=== PATIENT | female | born 1950 | race Caucasian/White ===

== ENCOUNTER 2019-12-12 15:55 | Observation (INO) | payer MEDICARE, BC, OTHER ==
[2019-12-12] MEDS ORDERED: Sodium Chloride 0.9% 2.5 ML Syringe FLUSH PRN (15:57)
[2019-12-12] MEDS ORDERED: Sodium Chloride 0.9% 10 ML Syringe FLUSH PRN (15:57)
--- NOTE | 2019-12-12 16:29 | EDM.PDOC ---
ED HPI GENERAL MEDICAL PROBLEM - General Chief Complaint: Chest Pain Stated Complaint: CHEST PAIN Time Seen by Provider: 12/12/19 15:56 Source of Information: Reports: Patient History Limitations: Reports: No Limitations - History of Present Illness INITIAL COMMENTS - FREE TEXT/NARRATIVE: 68-year-old female with history of HTN, CHF presents with acute onset substernal chest pain 45 minutes prior to arrival. She was getting out of a car when she felt acute onset sharp, squeezing pain localized to the sub-sternum that radiates to her back. Rated 7/10 at the time of onset, currently asymptomatic at 0/10. She denies nausea, vomiting, shortness of breath, abdominal pain, fever, cough. ROS: A 10-point review of systems, other than pertinent positives and negatives as stated per HPI, is otherwise negative PHYSICAL EXAM General: AOx4, GCS = 15, No distress HEENT: dry mucous membrane Neck: supple, no meningismus, no Kernig or Brudzinski Cardiac: S1S2 RRR Respiratory: CTAB, no crackles or rales, no wheezing Abdomen: Soft, nontender, no rebound or guarding, nondistended, no pulsatile mas s. Back: nontender Musculoskeletal: NVI distally, no deformity Neuro: No focal deficits, CN 2 - 12 WNL. - Related Data Allergies Allergy/AdvReac Type Severity Reaction Status Date / Time No Known Allergies Allergy Verified 12/12/19 16:07 ED ROS GENERAL - Review of Systems Review Of Systems: See Below (see dictation) ED EXAM, GENERAL - Physical Exam Exam: See Below (see dictation) EKG INTERPRETATION EKG Interpretation Comments: 96 Bpm, NSR, normal QRS interval, no STEMI. EKG and rhythm strip interpreted by me at 1559 Course - Vital Signs Last Recorded V/S: Last Vital Signs Temp 96.8 F L 12/12/19 16:05 Pulse 91 12/12/19 18:19 Resp 16 12/12/19 18:19 BP 171/80 H 12/12/19 18:19 Pulse Ox 98 12/12/19 18:19 - Orders/Labs/Meds Orders: Active Orders 24 hr Category Date Time Status Admission Status [Patient Status] [ADT] Stat ADT 12/12/19 19:06 Ordered Cardiac Monitoring [RC] . DIRECTED Care 12/12/19 15:57 Active EKG Documentation Completion [RC] STAT Care 12/12/19 15:57 Active Pulse Oximetry [RC] ASDIRECTED Care 12/12/19 15:57 Active CORONAVIRUS COVID-19 PCR PHL Stat Lab 12/12/19 19:02 Ordered Sodium Chloride 0.9% [Saline Flush] Med 12/12/19 15:57 Active 10 ml FLUSH ASDIRECTED PRN Sodium Chloride 0.9% [Saline Flush] Med 12/12/19 15:57 Active 2.5 ml FLUSH ASDIRECTED PRN Saline Lock Insert [OM.PC] Stat Oth 12/12/19 15:57 Ordered Medication Orders Sodium Chloride (Saline Flush) 10 ml FLUSH ASDIRECTED PRN PRN Reason: Keep Vein Open Last Admin: 12/12/19 18:18 Dose: 10 ml Documented by: [email or web address] Sodium Chloride (Saline Flush) 2.5 ml FLUSH ASDIRECTED PRN PRN Reason: Keep Vein Open Last Admin: 12/12/19 18:18 Dose: 2.5 ml Documented by: [email or web address] Labs: Laboratory Tests 12/12/19 12/12/19 12/12/19 Range/Units 16:45 16:45 16:45 WBC 6.96 (4.0-11.0) K/uL RBC 4.39 (4.30-5.90) M/uL Hgb 14.4 (12.0-16.0) g/dL Hct 41.7 (36.0-46.0) % MCV 95.0 (80.0-98.0) fL MCH 32.8 H (27.0-32.0) pg MCHC 34.5 (31.0-37.0) g/dL RDW Std Deviation 43.6 (28.0-62.0) fl RDW Coeff of Vidya 13 (11.0-15.0) % Plt Count 252 (150-400) K/uL MPV 9.60 (7.40-12.00) fL Neut % (Auto) 46.8 L (48.0-80.0) % Lymph % (Auto) 44.0 H (16.0-40.0) % [place] % (Auto) 6.5 (0.0-15.0) % Eos % (Auto) 2.4 (0.0-7.0) % Baso % (Auto) 0.3 (0.0-1.5) % Neut # (Auto) 3.3 (1.4-5.7) K/uL Lymph # (Auto) 3.1 H (0.6-2.4) K/uL [place] # (Auto) 0.5 (0.0-0.8) K/uL Eos # (Auto) 0.2 (0.0-0.7) K/uL Baso # (Auto) 0.0 (0.0-0.1) K/uL Nucleated RBC % 0.0 /100WBC Nucleated RBCs # 0 K/uL INR 0.99 Sodium 139 (136-145) mmol/L Potassium 2.5 L (3.5-5.1) mmol/L Chloride 100 (98-107) mmol/L Carbon Dioxide 31.5 (21.0-32.0) mmol/L BUN 19 H (7.0-18.0) mg/dL Creatinine 0.8 (0.6-1.0) mg/dL Est Cr Clr Drug Dosing 48.34 mL/min Estimated GFR (MDRD) > 60.0 ml/min Glucose 186 H (74-106) mg/dL Calcium 9.1 (8.5-10.1) mg/dL Total Bilirubin 0.3 (0.2-1.0) mg/dL AST 20 (15-37) IU/L ALT 22 (14-63) IU/L Alkaline Phosphatase 71 (46-116) U/L Troponin I < 0.050 (0.000-0.056) ng/mL Total Protein 6.8 (6.4-8.2) g/dL Albumin 3.6 (3.4-5.0) g/dL Globulin 3.2 (2.6-4.0) g/dL Albumin/Globulin Ratio 1.1 (0.9-1.6) 12/12/19 Range/Units 18:00 WBC (4.0-11.0) K/uL RBC (4.30-5.90) M/uL Hgb (12.0-16.0) g/dL Hct (36.0-46.0) % MCV (80.0-98.0) fL MCH (27.0-32.0) pg MCHC (31.0-37.0) g/dL RDW Std Deviation (28.0-62.0) fl RDW Coeff of Vidya (11.0-15.0) % Plt Count (150-400) K/uL MPV (7.40-12.00) fL Neut % (Auto) (48.0-80.0) % Lymph % (Auto) (16.0-40.0) % [place] % (Auto) (0.0-15.0) % Eos % (Auto) (0.0-7.0) % Baso % (Auto) (0.0-1.5) % Neut # (Auto) (1.4-5.7) K/uL Lymph # (Auto) (0.6-2.4) K/uL [place] # (Auto) (0.0-0.8) K/uL Eos # (Auto) (0.0-0.7) K/uL Baso # (Auto) (0.0-0.1) K/uL Nucleated RBC % /100WBC Nucleated RBCs # K/uL INR Sodium (136-145) mmol/L Potassium (3.5-5.1) mmol/L Chloride (98-107) mmol/L Carbon Dioxide (21.0-32.0) mmol/L BUN (7.0-18.0) mg/dL Creatinine (0.6-1.0) mg/dL Est Cr Clr Drug Dosing mL/min Estimated GFR (MDRD) ml/min Glucose (74-106) mg/dL Calcium (8.5-10.1) mg/dL Total Bilirubin (0.2-1.0) mg/dL AST (15-37) IU/L ALT (14-63) IU/L Alkaline Phosphatase (46-116) U/L Troponin I < 0.050 (0.000-0.056) ng/mL Total Protein (6.4-8.2) g/dL Albumin (3.4-5.0) g/dL Globulin (2.6-4.0) g/dL Albumin/Globulin Ratio (0.9-1.6) Meds: Medications Generic Name Dose Route Start Last Admin Trade Name Freq PRN Reason Stop Dose Admin Sodium Chloride 10 ml 12/12/19 15:57 12/12/19 18:18 Saline Flush FLUSH 10 ml ASDIRECTED PRN Administration Keep Vein Open Sodium Chloride 2.5 ml 12/12/19 15:57 12/12/19 18:18 Saline Flush FLUSH 2.5 ml ASDIRECTED PRN Administration Keep Vein Open Discontinued Medications Generic Name Dose Route Start Last Admin Trade Name Freq PRN Reason Stop Dose Admin Iopamidol 50 ml 12/12/19 18:10 12/12/19 18:10 Isovue Multipack-370 (76%) IVPUSH 12/12/19 18:11 50 ml ONETIME STA Administration Potassium Chloride 40 meq 12/12/19 17:34 12/12/19 18:18 Klor-Con M20 PO 12/12/19 17:35 40 meq ONETIME ONE Administration - Re-Assessments/Exams Free Text/Narrative Re-Assessment/Exam: 12/12/19 18:[address] Zuniga, who agrees to assume care at this point. The hospitalist's documentation supersedes all other documentation on this patient with regard to any conflicts or discrepancies from this point forward. Any emergency conditions have been treated to the ability of the ED prior to admission. Departure - Departure Time of Disposition: 18:48 Disposition: Refer to Observation Condition: Good Clinical Impression: Atypical chest pain Referrals: Angeles Palacios MD [Primary Care Provider] - Forms: ED Department Discharge Sepsis Event Note (ED) - Evaluation Sepsis Screening Result: No Definite Risk - Focused Exam Vital Signs: Vital Signs Temp Pulse Resp BP Pulse Ox 12/12/19 18:19 91 16 171/80 H 98 12/12/19 16:05 96.8 F L 98 16 156/86 H 99 - My Orders Last 24 Hours: My Active Orders 12/12/19 15:57 Cardiac Monitoring [RC] . DIRECTED EKG Documentation Completion [RC] STAT Pulse Oximetry [RC] ASDIRECTED Sodium Chloride 0.9% [Saline Flush] 10 ml FLUSH ASDIRECTED PRN Sodium Chloride 0.9% [Saline Flush] 2.5 ml FLUSH ASDIRECTED PRN Saline Lock Insert [OM.PC] Stat 12/12/19 19:02 CORONAVIRUS COVID-19 PCR PHL Stat 12/12/19 19:06 Admission Status [Patient Status] [ADT] Stat - Assessment/Plan Last 24 Hours: My Active Orders 12/12/19 15:57 Cardiac Monitoring [RC] . DIRECTED EKG Documentation Completion [RC] STAT Pulse Oximetry [RC] ASDIRECTED Sodium Chloride 0.9% [Saline Flush] 10 ml FLUSH ASDIRECTED PRN Sodium Chloride 0.9% [Saline Flush] 2.5 ml FLUSH ASDIRECTED PRN Saline Lock Insert [OM.PC] Stat 12/12/19 19:02 CORONAVIRUS COVID-19 PCR PHL Stat 12/12/19 19:06 Admission Status [Patient Status] [ADT] Stat
--- NOTE | 2019-12-12 16:35 | CR ---
Chest: Portable view of the chest was obtained. Comparison: No prior chest imaging is available. Left clavicle fracture is seen which appears to be old. Heart size and mediastinum are normal. Lungs are clear. Impression: 1. Nothing acute is appreciated on portable chest x-ray. Diagnostic code #2 This report was dictated in MDT
[2019-12-12 17:24] LABS: BLOOD UREA NITROGEN,BUN 19 mg/dL (7.0-18.0); CARBON DIOXIDE,CO2 31.5 mmol/L (21.0-32.0); CHLORIDE,CL 100 mmol/L (98-107); GLUCOSE RANDOM 186 mg/dL (74-106); POTASSIUM,K 2.5 mmol/L (3.5-5.1); SODIUM,NA 139 mmol/L (136-145)
[2019-12-12] MEDS ORDERED: Potassium Chloride 20 MEQ Tab.ER PO ONE (17:34)
[2019-12-12] MEDS ORDERED: Iopamidol 755 MG/ML 500 ML Multipack Bottle IVPUSH STA (18:10)
--- NOTE | 2019-12-12 18:15 | CT ---
CT chest Technique: Multiple axial sections were obtained from above the lung apices inferiorly through the lung bases. Intravenous contrast was utilized. Study performed as a pulmonary angiogram protocol. Comparison: Prior chest x-ray performed earlier on the same day. Findings: Aorta shows atherosclerotic calcification without aneurysm or dissection. Pulmonary arteries are well opacified. No filling defects are seen to indicate pulmonary embolism. Mediastinum and hilar region show no adenopathy. No pericardial thickening is seen. Visualized upper abdominal structures show nothing acute. Lung window settings were reviewed which show no acute parenchymal. Bone window settings were reviewed which shows no acute osseous finding. Impression: 1. No findings of pulmonary embolism. 2. Nothing acute is seen on CT study of the chest. Diagnostic code #2 This report was dictated in MDT
[2019-12-12] MEDS ORDERED: Albuterol/Ipratropium 3.0-0.5 MG/3 ML Neb Soln NEB PRN (20:29)
[2019-12-12] MEDS ORDERED: Acetaminophen 500 MG Tab PO PRN (21:21)
--- NOTE | 2019-12-12 22:36 | PCM.HP.2 ---
H&P History of Present Illness - General Date of Service: 12/12/19 Admit Problem/Dx: Admission Diagnosis/Problem Admission Diagnosis/Problem Chest pain - History of Present Illness Initial Comments - Free Text/Narative: 68-year-old female with history of HTN, anxiety, depression, presents with acute onset substernal chest pain 45 minutes prior to arrival. She was getting out of a car when she felt acute onset sharp, squeezing pain localized to the sub-sternum that radiates to her back. Rated 7/10 at the time of onset, by the time she was seen in ER she was asymptomatic. She denies nausea, vomiting, shor tness of breath, abdominal pain, fever, cough. Patient has no h/o chest pain or CAD. Generally healthy. in ER 1st set of troponin was negative, EKG showed no acute ischemic changes., labs were reassuring, except for hypokalemia, which was repleted, Patient was admitted for ACS rule out. - Related Data Allergies/Adverse Reactions: Allergies Allergy/AdvReac Type Severity Reaction Status Date / Time No Known Allergies Allergy Verified 12/12/19 21:35 Home Medications: Home Meds Chlorthalidone 25 mg PO DAILY 12/12/19 [History] DULoxetine [Cymbalta] 90 mg PO DAILY 12/12/19 [History] Furosemide [Lasix] 20 mg PO DAILY 12/12/19 [History] Telmisartan [Micardis] 60 mg PO DAILY 12/12/19 [History] Aspirin [Halfprin] 81 mg PO DAILY #30 tab.ec 12/13/19 [Rx] Potassium Citrate [Potassium Citrate ER] 10 meq PO DAILY #7 tablet.er 12/13/19 [Rx] atorvaSTATin [Lipitor] 10 mg PO BEDTIME #30 tab 12/13/19 [Rx] Past Medical History Cardiovascular History: Reports: Hypertension Psychiatric History: Reports: Anxiety, Depression - Infectious Disease History Infectious Disease History: Reports: Chicken Pox Social & Family History - Family History Family Medical History: Noncontributory - Tobacco Use Smoking Status *Q: Unknown Ever Smoked H&P Review of Systems - Review of Systems: Review Of Systems: See Below General: Denies: Fever, Chills, Malaise HEENT: Denies: Dysphasia, Ear Pain Pulmonary: Denies: Shortness of Breath, Wheezing, Pleuritic Chest Pain Cardiovascular: Reports: Chest Pain (resolved). Denies: Palpitations, Dyspnea on Exertion, Orthopnea Gastrointestinal: Denies: Abdominal Pain, Anorexia, Black Stool Genitourinary: Denies: Dysuria, Frequency, Burning Musculoskeletal: Denies: Neck Pain, Shoulder Pain, Arm Pain Skin: Denies: Cyanosis, Jaundice, Mottled Psychiatric: Denies: Confusion, Depression, Mood Lability Neurological: Denies: Dizziness, Headache, Numbness Hematologic/Lymphatic: Denies: Easy Bleeding, Easy Bruising Immunologic: Denies: Anaphylaxis, Environmental Allergy, Seasonal Allergy Exam - Exam Exam: See Below - Vital Signs Vital Signs: Last Vital Signs Temp 36.3 C 12/12/19 21:30 Pulse 83 12/12/19 21:30 Resp 16 12/12/19 21:30 BP 135/74 12/12/19 21:30 Pulse Ox 99 12/12/19 21:30 Weight: 61.235 kg - Exam General: Alert, Oriented Neck: Supple Lungs: Clear to Auscultation, Normal Respiratory Effort Cardiovascular: Regular Rate, Regular Rhythm, Normal S1, Normal S2 Back Exam: Normal Inspection, Full Range of Motion Extremities: Normal Inspection, Normal Range of Motion, Non-Tender, No Pedal Edema - Patient Data Lab Results Last 24 hrs: Laboratory Results - last 24 hr 12/12/19 12/12/19 12/12/19 Range/Units 16:45 16:45 16:45 WBC 6.96 (4.0-11.0) K/uL RBC 4.39 (4.30-5.90) M/uL Hgb 14.4 (12.0-16.0) g/dL Hct 41.7 (36.0-46.0) % MCV 95.0 (80.0-98.0) fL MCH 32.8 H (27.0-32.0) pg MCHC 34.5 (31.0-37.0) g/dL RDW Std Deviation 43.6 (28.0-62.0) fl RDW Coeff of Vidya 13 (11.0-15.0) % Plt Count 252 (150-400) K/uL MPV 9.60 (7.40-12.00) fL Neut % (Auto) 46.8 L (48.0-80.0) % Lymph % (Auto) 44.0 H (16.0-40.0) % [place] % (Auto) 6.5 (0.0-15.0) % Eos % (Auto) 2.4 (0.0-7.0) % Baso % (Auto) 0.3 (0.0-1.5) % Neut # (Auto) 3.3 (1.4-5.7) K/uL Lymph # (Auto) 3.1 H (0.6-2.4) K/uL [place] # (Auto) 0.5 (0.0-0.8) K/uL Eos # (Auto) 0.2 (0.0-0.7) K/uL Baso # (Auto) 0.0 (0.0-0.1) K/uL Nucleated RBC % 0.0 /100WBC Nucleated RBCs # 0 K/uL INR 0.99 Sodium 139 (136-145) mmol/L Potassium 2.5 L (3.5-5.1) mmol/L Chloride 100 (98-107) mmol/L Carbon Dioxide 31.5 (21.0-32.0) mmol/L BUN 19 H (7.0-18.0) mg/dL Creatinine 0.8 (0.6-1.0) mg/dL Est Cr Clr Drug Dosing 48.34 mL/min Estimated GFR (MDRD) > 60.0 ml/min Glucose 186 H (74-106) mg/dL Calcium 9.1 (8.5-10.1) mg/dL Total Bilirubin 0.3 (0.2-1.0) mg/dL AST 20 (15-37) IU/L ALT 22 (14-63) IU/L Alkaline Phosphatase 71 (46-116) U/L Troponin I < 0.050 (0.000-0.056) ng/mL Total Protein 6.8 (6.4-8.2) g/dL Albumin 3.6 (3.4-5.0) g/dL Globulin 3.2 (2.6-4.0) g/dL Albumin/Globulin Ratio 1.1 (0.9-1.6) SARS-CoV-2 RNA (RT-PCR) (NEGATIVE) 12/12/19 12/12/19 12/12/19 Range/Units 18:00 19:00 21:10 WBC (4.0-11.0) K/uL RBC (4.30-5.90) M/uL Hgb (12.0-16.0) g/dL Hct (36.0-46.0) % MCV (80.0-98.0) fL MCH (27.0-32.0) pg MCHC (31.0-37.0) g/dL RDW Std Deviation (28.0-62.0) fl RDW Coeff of Vidya (11.0-15.0) % Plt Count (150-400) K/uL MPV (7.40-12.00) fL Neut % (Auto) (48.0-80.0) % Lymph % (Auto) (16.0-40.0) % [place] % (Auto) (0.0-15.0) % Eos % (Auto) (0.0-7.0) % Baso % (Auto) (0.0-1.5) % Neut # (Auto) (1.4-5.7) K/uL Lymph # (Auto) (0.6-2.4) K/uL [place] # (Auto) (0.0-0.8) K/uL Eos # (Auto) (0.0-0.7) K/uL Baso # (Auto) (0.0-0.1) K/uL Nucleated RBC % /100WBC Nucleated RBCs # K/uL INR Sodium (136-145) mmol/L Potassium (3.5-5.1) mmol/L Chloride (98-107) mmol/L Carbon Dioxide (21.0-32.0) mmol/L BUN (7.0-18.0) mg/dL Creatinine (0.6-1.0) mg/dL Est Cr Clr Drug Dosing mL/min Estimated GFR (MDRD) ml/min Glucose (74-106) mg/dL Calcium (8.5-10.1) mg/dL Total Bilirubin (0.2-1.0) mg/dL AST (15-37) IU/L ALT (14-63) IU/L Alkaline Phosphatase (46-116) U/L Troponin I < 0.050 <0.050 (0.000-0.056) ng/mL Total Protein (6.4-8.2) g/dL Albumin (3.4-5.0) g/dL Globulin (2.6-4.0) g/dL Albumin/Globulin Ratio (0.9-1.6) SARS-CoV-2 RNA (RT-PCR) NEGATIVE (NEGATIVE) Result Diagrams: 12/13/19 05:42 12/13/19 05:42 Sepsis Event Note - Evaluation Sepsis Screening Result: No Definite Risk - Focused Exam Vital Signs: Vital Signs Temp Pulse Resp BP Pulse Ox 12/12/19 21:30 36.3 C 83 16 135/74 99 12/12/19 19:30 36.9 C 86 18 125/83 97 12/12/19 18:19 91 16 171/80 H 98 12/12/19 16:05 36.0 C L 98 16 156/86 H 99 Date Exam was Performed: 12/13/19 Time Exam was Performed: 15:39 - Problem List (1) HTN (hypertension) SNOMED Code(s): 00940046 ICD Code: I10 - ESSENTIAL (PRIMARY) HYPERTENSION Status: Acute (2) Atypical chest pain SNOMED Code(s): 149611097 ICD Code: R07.89 - OTHER CHEST PAIN Status: Acute (3) Hypokalemia SNOMED Code(s): 53550450 ICD Code: E87.6 - HYPOKALEMIA Status: Acute Problem List Initiated/Reviewed/Updated: Yes Orders Last 24hrs: Active Orders 24 hr Category Date Time Status Admission Status [Patient Status] [ADT] Stat ADT 12/12/19 19:06 Active Ambulate [RC] ASDIRECTED Care 12/12/19 20:28 Active Antiembolic Devices [RC] PER UNIT ROUTINE Care 12/12/19 20:30 Active EKG Documentation Completion [RC] STAT Care 12/12/19 15:57 Active Oxygen Therapy Adult [Oxygen Therapy] [RC] ASDIRECTED Care 12/12/19 20:29 Active Pulse Oximetry [RC] ASDIRECTED Care 12/12/19 15:57 Active Pulse Oximetry [RC] PRN Care 12/12/19 20:29 Active RT Aerosol Therapy [RC] ASDIRECTED Care 12/12/19 20:30 Active Telemetry Monitoring [Cardiac Monitoring] [RC] Q8H Care 12/12/19 19:24 Active Vital Signs [RC] Q4H Care 12/12/19 20:00 Active Heart Healthy Diet [DIET] Diet 12/13/19 Breakfast Active BASIC METABOLIC PANEL,BMP [CHEM] AM Lab 12/13/19 05:11 Ordered CBC WITH AUTO DIFF [HEME] AM Lab 12/13/19 05:11 Ordered MAGNESIUM [CHEM] AM Lab 12/13/19 05:11 Ordered PHOSPHORUS [CHEM] AM Lab 12/13/19 05:11 Ordered Acetaminophen [Tylenol Extra Strength] Med 12/12/19 21:21 Active 500 mg PO Q6H PRN Albuterol/Ipratropium [DuoNeb 3.0-0.5 MG/3 ML] Med 12/12/19 20:29 Active 3 ml NEB Q4HRRT PRN Sodium Chloride 0.9% [Saline Flush] Med 12/12/19 15:57 Active 10 ml FLUSH ASDIRECTED PRN Sodium Chloride 0.9% [Saline Flush] Med 12/12/19 15:57 Active 2.5 ml FLUSH ASDIRECTED PRN Saline Lock Insert [OM.PC] Stat Oth 12/12/19 15:57 Ordered Sequential Compression Device [OM.PC] Routine Oth 12/12/19 20:30 Ordered Medication Orders Acetaminophen (Tylenol Extra Strength) 500 mg PO Q6H PRN PRN Reason: Pain Albuterol/Ipratropium (Duoneb 3.0-0.5 Mg/3 Ml) 3 ml NEB Q4HRRT PRN PRN Reason: Shortness of Breath Sodium Chloride (Saline Flush) 10 ml FLUSH ASDIRECTED PRN PRN Reason: Keep Vein Open Last Admin: 12/12/19 18:18 Dose: 10 ml Documented by: [email or web address] Sodium Chloride (Saline Flush) 2.5 ml FLUSH ASDIRECTED PRN PRN Reason: Keep Vein Open Last Admin: 12/12/19 18:18 Dose: 2.5 ml Documented by: [email or web address] Assessment/Plan Comment:: 68 y/o F admitted for ACS rule out Admit to observation , tele ASA, statin check TSH, lipid profile, HbA1c Stress test on Outpatient basis SCD for DVT ppx Cardiac diet
[2019-12-13 06:20] LABS: HEMOGLOBIN A1C 5.6 % (4.5-6.2)
[2019-12-13 06:36] LABS: BLOOD UREA NITROGEN,BUN 13 mg/dL (7.0-18.0); CARBON DIOXIDE,CO2 29.9 mmol/L (21.0-32.0); CHLORIDE,CL 104 mmol/L (98-107); GLUCOSE RANDOM 107 mg/dL (74-106); POTASSIUM,K 2.7 mmol/L (3.5-5.1); SODIUM,NA 141 mmol/L (136-145)
[2019-12-13] MEDS ORDERED: Potassium Chloride 10% 20 MEQ/15 ML Soln 30 ML UD Cup PO ONE (08:23)
[2019-12-13] MEDS ORDERED: Potassium Chloride 20 MEQ Tab.ER PO ONE (08:23)
[2019-12-13] MEDS ORDERED: Chlorthalidone 25 MG Tab PO SCH (09:00)
[2019-12-13] MEDS ORDERED: Pneumococcal Polyvalent-23 Vaccine 0.5 ML SDV IM ONE (09:00)
[2019-12-13] MEDS ORDERED: DULoxetine 30 MG Cap PO SCH (09:00)
[2019-12-13] MEDS ORDERED: TELMISARTAN PO SCH (09:00)
[2019-12-13] MEDS ORDERED: Furosemide 20 MG Tab PO SCH (09:00)
--- NOTE | 2019-12-13 09:19 | PCM.DCSUM1 ---
Discharge Summary - Hospital Course Free Text/Narrative:: 68-year-old female with history of HTN, anxiety, depression, presents with acute onset substernal chest pain 45 minutes prior to arrival. She was getting out of a car when she felt acute onset sharp, squeezing pain localized to the sub-sternum that radiates to her back. Rated 7/10 at the time of onset, by the time she was seen in ER she was asymptomatic. She denies nausea, vomiting, shortness of breath, abdominal pain, fever, cough. Patient has no h/o chest pain or CAD. Generally healthy. in ER 1st set of troponin was negative, EKG showed no acute ischemic changes., labs were reassuring, except for hypokalemia, which was repleted, Patient was admitted for ACS rule out. Troponin were trended* 3 times all negative, tele was unremarkable, patients remained stable throughout the stay. Her lipids, tsh, glycated Hb were normal. Patient was started on low dose ASA, statin. Patient was discharged next day with recommendations to fu with her pcp and wool washer for possible stress test. - Discharge Data Discharge Date: 12/13/19 Discharge Disposition: Home, Self-Care 01 Condition: Good - Referral to Home Health Primary Care Physician: Angeles Palacios MD - Discharge Diagnosis/Problem(s) (1) HTN (hypertension) SNOMED Code(s): 40998584 ICD Code: I10 - ESSENTIAL (PRIMARY) HYPERTENSION Status: Acute (2) Atypical chest pain SNOMED Code(s): 191472383 ICD Code: R07.89 - OTHER CHEST PAIN Status: Acute (3) Hypokalemia SNOMED Code(s): 49410636 ICD Code: E87.6 - HYPOKALEMIA Status: Acute - Discharge Plan Prescriptions/Med Rec: Aspirin [Halfprin] 81 mg PO DAILY #30 tab.ec atorvaSTATin [Lipitor] 10 mg PO BEDTIME #30 tab Potassium Citrate [Potassium Citrate ER] 10 meq PO DAILY #7 tablet.er Home Medications: Home Meds Chlorthalidone 25 mg PO DAILY 12/12/19 [History] DULoxetine [Cymbalta] 90 mg PO DAILY 12/12/19 [History] Furosemide [Lasix] 20 mg PO DAILY 12/12/19 [History] Telmisartan [Micardis] 60 mg PO DAILY 12/12/19 [History] Aspirin [Halfprin] 81 mg PO DAILY #30 tab.ec 12/13/19 [Rx] Potassium Citrate [Potassium Citrate ER] 10 meq PO DAILY #7 tablet.er 12/13/19 [Rx] atorvaSTATin [Lipitor] 10 mg PO BEDTIME #30 tab 12/13/19 [Rx] Patient Handouts: Potassium Citrate Extended-Release Tablets, Nonspecific Chest Pain, Adult, [id number], Atorvastatin tablets, Aspirin, ASA oral tablets Referrals: Angeles Palacios MD [Primary Care Provider] - 12/25/19 3:15 pm (Arrive 15 minutes early with a photo ID, insurance card, and a mask if you have one. ) - Discharge Summary/Plan Comment DC Time >30 min.: No - Patient Data Vitals - Most Recent: Last Vital Signs Temp 36.3 C 12/13/19 08:00 Pulse 77 12/13/19 08:00 Resp 16 12/13/19 08:00 BP 132/73 12/13/19 08:00 Pulse Ox 98 12/13/19 08:00 Weight - Most Recent: 61.235 kg I&O - Last 24 hours: Intake & Output 12/12/19 12/13/19 12/13/19 22:59 06:59 14:59 Intake Total 300 Output Total 800 Balance -500 Lab Results - Last 24 hrs: Laboratory Results - last 24 hr 12/12/19 12/12/19 12/12/19 Range/Units 16:45 16:45 16:45 WBC 6.96 (4.0-11.0) K/uL RBC 4.39 (4.30-5.90) M/uL Hgb 14.4 (12.0-16.0) g/dL Hct 41.7 (36.0-46.0) % MCV 95.0 (80.0-98.0) fL MCH 32.8 H (27.0-32.0) pg MCHC 34.5 (31.0-37.0) g/dL RDW Std Deviation 43.6 (28.0-62.0) fl RDW Coeff of Vidya 13 (11.0-15.0) % Plt Count 252 (150-400) K/uL MPV 9.60 (7.40-12.00) fL Neut % (Auto) 46.8 L (48.0-80.0) % Lymph % (Auto) 44.0 H (16.0-40.0) % [place] % (Auto) 6.5 (0.0-15.0) % Eos % (Auto) 2.4 (0.0-7.0) % Baso % (Auto) 0.3 (0.0-1.5) % Neut # (Auto) 3.3 (1.4-5.7) K/uL Lymph # (Auto) 3.1 H (0.6-2.4) K/uL [place] # (Auto) 0.5 (0.0-0.8) K/uL Eos # (Auto) 0.2 (0.0-0.7) K/uL Baso # (Auto) 0.0 (0.0-0.1) K/uL Nucleated RBC % 0.0 /100WBC Nucleated RBCs # 0 K/uL INR 0.99 Sodium 139 (136-145) mmol/L Potassium 2.5 L (3.5-5.1) mmol/L Chloride 100 (98-107) mmol/L Carbon Dioxide 31.5 (21.0-32.0) mmol/L BUN 19 H (7.0-18.0) mg/dL Creatinine 0.8 (0.6-1.0) mg/dL Est Cr Clr Drug Dosing 48.34 mL/min Estimated GFR (MDRD) > 60.0 ml/min Glucose 186 H (74-106) mg/dL Hemoglobin A1c (4.5-6.2) % Calcium 9.1 (8.5-10.1) mg/dL Phosphorus (2.6-4.7) mg/dL Magnesium (1.8-2.4) mg/dL Total Bilirubin 0.3 (0.2-1.0) mg/dL AST 20 (15-37) IU/L ALT 22 (14-63) IU/L Alkaline Phosphatase 71 (46-116) U/L Troponin I < 0.050 (0.000-0.056) ng/mL Total Protein 6.8 (6.4-8.2) g/dL Albumin 3.6 (3.4-5.0) g/dL Globulin 3.2 (2.6-4.0) g/dL Albumin/Globulin Ratio 1.1 (0.9-1.6) Triglycerides (0-200) mg/dL Cholesterol (50-200) mg/dL LDL Cholesterol, Calc (60-180) mg/dL VLDL Cholesterol (5-55) mg/dL HDL Cholesterol (40-60) mg/dL Cholesterol/HDL Ratio (3.3-6.0) TSH 3rd Generation (0.36-3.74) uIU/mL SARS-CoV-2 RNA (RT-PCR) (NEGATIVE) 12/12/19 12/12/19 12/12/19 Range/Units 18:00 19:00 21:10 WBC (4.0-11.0) K/uL RBC (4.30-5.90) M/uL Hgb (12.0-16.0) g/dL Hct (36.0-46.0) % MCV (80.0-98.0) fL MCH (27.0-32.0) pg MCHC (31.0-37.0) g/dL RDW Std Deviation (28.0-62.0) fl RDW Coeff of Vidya (11.0-15.0) % Plt Count (150-400) K/uL MPV (7.40-12.00) fL Neut % (Auto) (48.0-80.0) % Lymph % (Auto) (16.0-40.0) % [place] % (Auto) (0.0-15.0) % Eos % (Auto) (0.0-7.0) % Baso % (Auto) (0.0-1.5) % Neut # (Auto) (1.4-5.7) K/uL Lymph # (Auto) (0.6-2.4) K/uL [place] # (Auto) (0.0-0.8) K/uL Eos # (Auto) (0.0-0.7) K/uL Baso # (Auto) (0.0-0.1) K/uL Nucleated RBC % /100WBC Nucleated RBCs # K/uL INR Sodium (136-145) mmol/L Potassium (3.5-5.1) mmol/L Chloride (98-107) mmol/L Carbon Dioxide (21.0-32.0) mmol/L BUN (7.0-18.0) mg/dL Creatinine (0.6-1.0) mg/dL Est Cr Clr Drug Dosing mL/min Estimated GFR (MDRD) ml/min Glucose (74-106) mg/dL Hemoglobin A1c (4.5-6.2) % Calcium (8.5-10.1) mg/dL Phosphorus (2.6-4.7) mg/dL Magnesium (1.8-2.4) mg/dL Total Bilirubin (0.2-1.0) mg/dL AST (15-37) IU/L ALT (14-63) IU/L Alkaline Phosphatase (46-116) U/L Troponin I < 0.050 <0.050 (0.000-0.056) ng/mL Total Protein (6.4-8.2) g/dL Albumin (3.4-5.0) g/dL Globulin (2.6-4.0) g/dL Albumin/Globulin Ratio (0.9-1.6) Triglycerides (0-200) mg/dL Cholesterol (50-200) mg/dL LDL Cholesterol, Calc (60-180) mg/dL VLDL Cholesterol (5-55) mg/dL HDL Cholesterol (40-60) mg/dL Cholesterol/HDL Ratio (3.3-6.0) TSH 3rd Generation (0.36-3.74) uIU/mL SARS-CoV-2 RNA (RT-PCR) NEGATIVE (NEGATIVE) 12/13/19 12/13/19 12/13/19 Range/Units 05:42 05:42 05:42 WBC 6.85 (4.0-11.0) K/uL RBC 4.24 L (4.30-5.90) M/uL Hgb 13.6 (12.0-16.0) g/dL Hct 40.5 (36.0-46.0) % MCV 95.5 (80.0-98.0) fL MCH 32.1 H (27.0-32.0) pg MCHC 33.6 (31.0-37.0) g/dL RDW Std Deviation 44.5 (28.0-62.0) fl RDW Coeff of Vidya 13 (11.0-15.0) % Plt Count 250 (150-400) K/uL MPV 9.40 (7.40-12.00) fL Neut % (Auto) 48.5 (48.0-80.0) % Lymph % (Auto) 41.0 H (16.0-40.0) % [place] % (Auto) 6.3 (0.0-15.0) % Eos % (Auto) 3.6 (0.0-7.0) % Baso % (Auto) 0.6 (0.0-1.5) % Neut # (Auto) 3.3 (1.4-5.7) K/uL Lymph # (Auto) 2.8 H (0.6-2.4) K/uL [place] # (Auto) 0.4 (0.0-0.8) K/uL Eos # (Auto) 0.3 (0.0-0.7) K/uL Baso # (Auto) 0.0 (0.0-0.1) K/uL Nucleated RBC % 0.0 /100WBC Nucleated RBCs # 0 K/uL INR Sodium 141 (136-145) mmol/L Potassium 2.7 L (3.5-5.1) mmol/L Chloride 104 (98-107) mmol/L Carbon Dioxide 29.9 (21.0-32.0) mmol/L BUN 13 (7.0-18.0) mg/dL Creatinine 0.6 (0.6-1.0) mg/dL Est Cr Clr Drug Dosing 64.46 mL/min Estimated GFR (MDRD) > 60.0 ml/min Glucose 107 H (74-106) mg/dL Hemoglobin A1c 5.6 (4.5-6.2) % Calcium 8.8 (8.5-10.1) mg/dL Phosphorus 2.8 (2.6-4.7) mg/dL Magnesium 2.3 (1.8-2.4) mg/dL Total Bilirubin (0.2-1.0) mg/dL AST (15-37) IU/L ALT (14-63) IU/L Alkaline Phosphatase (46-116) U/L Troponin I (0.000-0.056) ng/mL Total Protein (6.4-8.2) g/dL Albumin (3.4-5.0) g/dL Globulin (2.6-4.0) g/dL Albumin/Globulin Ratio (0.9-1.6) Triglycerides 76 (0-200) mg/dL Cholesterol 183 (50-200) mg/dL LDL Cholesterol, Calc 108 (60-180) mg/dL VLDL Cholesterol 15 (5-55) mg/dL HDL Cholesterol 60 (40-60) mg/dL Cholesterol/HDL Ratio 3.1 L (3.3-6.0) TSH 3rd Generation 1.26 (0.36-3.74) uIU/mL SARS-CoV-2 RNA (RT-PCR) (NEGATIVE) Med Orders - Current: Current Medications Acetaminophen (Tylenol Extra Strength) 500 mg PO Q6H PRN PRN Reason: Pain Albuterol/Ipratropium (Duoneb 3.0-0.5 Mg/3 Ml) 3 ml NEB Q4HRRT PRN PRN Reason: Shortness of Breath Chlorthalidone (Chlorthalidone) 25 mg PO DAILY [facility] Last Admin: 12/13/19 08:41 Dose: 25 mg Documented by: Duloxetine HCl (Cymbalta) 90 mg PO DAILY [facility] Last Admin: 12/13/19 08:41 Dose: 90 mg Documented by: Furosemide (Lasix) 20 mg PO DAILY [facility] Last Admin: 12/13/19 08:41 Dose: 20 mg Documented by: Telmisartan [ (Micardis] 60 Mg) 1 each PO DAILY [facility] Sodium Chloride (Saline Flush) 10 ml FLUSH ASDIRECTED PRN PRN Reason: Keep Vein Open Last Admin: 12/12/19 18:18 Dose: 10 ml Documented by: Sodium Chloride (Saline Flush) 2.5 ml FLUSH ASDIRECTED PRN PRN Reason: Keep Vein Open Last Admin: 12/12/19 18:18 Dose: 2.5 ml Documented by: Discontinued Medications Iopamidol (Isovue Multipack-370 (76%)) 50 ml IVPUSH ONETIME STA Stop: 12/12/19 18:11 Last Admin: 12/12/19 18:10 Dose: 50 ml Documented by: Pneumococcal Polyvalent Vaccine (Pneumovax 23) 0.5 ml IM .ONCE ONE Stop: 12/13/19 09:01 Potassium Chloride (Klor-Con M20) 40 meq PO ONETIME ONE Stop: 12/12/19 17:35 Last Admin: 07/01/20 18:18 Dose: 40 meq Documented by: Potassium Chloride (Potassium Chloride) 40 meq PO ONETIME ONE Stop: 12/13/19 08:24 Last Admin: 12/13/19 08:41 Dose: 40 meq Documented by:
== END 2019-12-13 12:35 | disposition home or self-care (01) ==
LOC: MW.ED 15:55 → MW.MS 19:06
PROVIDERS: ADMIT Student in an Organized Health Care Education/Training Program; ATTEND Student in an Organized Health Care Education/Training Program
DX: R07.89 Other chest pain (principal); I10 Essential (primary) hypertension; E87.6 Hypokalemia; Z20.828 Contact with and (suspected) exposure to other viral communicable diseases; Z79.899 Other long term (current) drug therapy; Z79.82 Long term (current) use of aspirin
CPT/HCPCS: 36415; 71045; 71045-26; 71275; 71275-26; 80048; 80053; 80061; 83036; 83735; 84100; 84443; 84484; 85025; 85610; 90732; 93005; 99285-25; A9270-GY; G0378; Q9967; U0002